=== PATIENT | male | born 1980 | race Caucasian/White ===

== ENCOUNTER 2025-05-23 15:50 | Emergency (ER) | payer MEDICAID ==
[~2025-05-23] VITALS: Ht 170.2 cm; Wt 82.0 kg
[2025-05-23 15:52] VITALS: O2SAT 100
[2025-05-23 15:57] VITALS: BP 162/92; PULSE 90; RESP 18; TEMP 36.7; O2SAT 100
== END 2025-05-23 20:00 | disposition left against medical advice (07) ==
LOC: ER 15:50
DX: M54.2 Cervicalgia (principal); I10 Essential (primary) hypertension; Z98.890 Other specified postprocedural states; Z53.21 Procedure and treatment not carried out due to patient leaving prior to being seen by health care provider
CPT/HCPCS: 99282